=== PATIENT | male | born 1945 | race Caucasian/White ===

== ENCOUNTER 2018-04-19 21:39 | Emergency (ER) | payer MEDICARE, BC ==
--- NOTE | 2018-04-19 21:48 | EDM.PDOC ---
ED HPI GENERAL MEDICAL PROBLEM - General Chief Complaint: Diabetic Complaint Stated Complaint: SHAKEY WEAK VISION BLURRED Time Seen by Provider: 04/19/18 21:48 Source of Information: Reports: Patient, Family (spouse) History Limitations: Reports: No Limitations - History of Present Illness INITIAL COMMENTS - FREE TEXT/NARRATIVE: Patient is a known insulin-dependent diabetic for greater than 30 years. Nothing different about his activity levels today in fact he was more active on the hot sun yesterday. Usually takes 40 units of long-acting insulin at suppertime but the cut it back to 30 units as his blood sugar was in the upper 82. He ate spaghetti for supper and piece of chocolate cake with icing. However within the next few hours his blood sugar continued to drop. The initial blood sugar that he started to feel was low was reportedly 68 at home. He ate some chocolate and gotten up to 82. However he still feels ill and blood sugar in the ED was 68. He did take his by dysuria and today which he takes once weekly. He states his blood sugars have been under pretty good control with his last hemoglobin A1c of 7.6. Has been experiencing a few more lows as of late but his blood sugars were out of control with glycosylated protein 7 the tendons within the last 16 months. He presents with blurred vision diaphoresis weakness. Onset: Today Onset Date: 04/19/18 Onset Time: 19:30 Duration: Hour(s): Location: Reports: Generalized (Generalized) Quality: Reports: Other Severity: Moderate (Weakness) Improves with: Reports: Other (Eating chocolate seem to help for short period of time) Worsens with: Reports: Movement Context: Reports: Other (Insulin reaction with low blood sugar). Denies: Activity, Exercise, Lifting, Sick Contact, Trauma Associated Symptoms: Reports: Confusion, Diaphoresis, Nausea/Vomiting (Mild nausea), Other (Blurred vision) Treatments RELIEF MATE: Reports: Other (see below) (He had eaten some chocolate before coming to the ED.) - Related Data Allergies Allergy/AdvReac Type Severity Reaction Status Date / Time No Known Allergies Allergy Verified 09/13/16 13:04 Home Meds: Home Meds Aspirin [Halfprin] 81 mg PO DAILY 09/13/16 [History] Ergocalciferol (Vitamin D2) [Vitamin D] 0 mg PO DAILY 09/13/16 [History] Furosemide [Lasix] 20 mg PO DAILY 09/13/16 [History] Insulin Glargine,Hum.Rec.Anlog [Lantus Solostar] 50 unit INJECT BEDTIME [History] Insulin Glulisine [Apidra Solostar] 0 unit INJECT ASDIRECTED 09/13/16 [History] Metoprolol Succinate 50 mg PO DAILY 09/13/16 [History] Rosuvastatin [Crestor] 10 mg PO DAILY 09/13/16 [History] Spironolactone [Aldactone] 25 mg PO DAILY 09/13/16 [History] Past Medical History Cardiovascular History: Reports: High Cholesterol, Hypertension, Other (See Below) Other Cardiovascular History: AAA repair Respiratory History: Reports: Pneumonia, Recurrent, Other (See Below) Other Respiratory History: Life Support for 2-3 days;Oct 2015. ([facility] [place]) Genitourinary History: Reports: Other (See Below) Other Genitourinary History: septic-had urinary infection and lead to severe illness and intubation Musculoskeletal History: Reports: Other (See Below) Other Musculoskeletal History: laminectomy 5 vertebrae Psychiatric History: Reports: Anxiety Endocrine/Metabolic History: Reports: Diabetes, Type II (Controlled with insulin and Bydureon and once weekly.) - Past Surgical History HEENT Surgical History: Reports: Oral Surgery Male Surgical History: Reports: TURP-Transurethral Resection of Prostate Social & Family History - Caffeine Use Caffeine Use: Reports: Coffee, Soda - Living Situation & Occupation Living situation: Reports: Occupation: Retired [employer] - Review of Systems Review Of Systems: See Below Constitutional: Reports: Malaise, Weakness, Fatigue, Diaphoresis. Denies: Fever , Chills HEENT: Reports: Vision Change (Blurred vision due to hypoglycemia) Respiratory: Reports: Shortness of Breath Cardiovascular: Reports: Blood Pressure Problem, Dyspnea on Exertion ( Chronically), Lightheadedness. Denies: Chest Pain, Claudication, Edema, Orthopnea (Has chronic hypertension well controlled with medication) Endocrine: Reports: Fatigue GI/Abdominal: Denies: Abdominal Pain, Anorexia, Black Stool, Bloody Stool : Reports: Frequency, Other Musculoskeletal: Reports: Back Pain (Nocturia 3. Has known benign prostatic hypertrophy.), Joint Pain (Knees hips neck at times) Skin: Reports: No Symptoms Neurological: Reports: Confusion (Tonight he was a little confused and little dizzy and lightheaded. This associated with hypoglycemia) Psychiatric: Reports: No Symptoms Hematologic/Lymphatic: Reports: No Symptoms Immunologic: Reports: No Symptoms ED EXAM, GENERAL - Physical Exam Exam: See Below Exam Limited By: No Limitations General Appearance: Alert, Moderate Distress (Anxious. Alert and oriented to time I examine answers all questions appropriately.) Eye Exam: Bilateral Eye: Normal Inspection, PERRL Throat/Mouth: Normal Inspection, Normal Lips, Normal Oropharynx Respiratory/Chest: No Respiratory Distress, Lungs Clear, Normal Breath Sounds, Chest Non-Tender, Decreased Breath Sounds (Breath sounds are mildly diminished in both lung bases.). No: Respiratory Distress, Rhonchi, Wheezing Cardiovascular: Regular Rate, Rhythm, No Edema, No Gallop, No Murmur, No Rub. No: Normal Peripheral Pulses Peripheral Pulses: 1+: Posterior Tibial (L), Posterior Tibial (R), Dorsalis Pedis (L), Dorsalis Pedis (R) GI/Abdominal: Normal Bowel Sounds, Soft, Non-Tender, Other (Obese.) Extremities: Normal Inspection, Normal Range of Motion, Non-Tender, No Pedal Edema Neurological: Alert, Oriented, CN II-XII Intact, Normal Cognition, No Motor/ Sensory Deficits. No: Normal Gait Psychiatric: Normal Affect, Anxious Skin Exam: Warm, Diaphoretic EKG INTERPRETATION EKG Date: 04/19/18 Time: 22:20 Rhythm: NSR Rate (Beats/Min): 67 [place]: LAD-Left [place] Deviation ([id number]) P-Wave: Present (First-degree AV block) QRS: Other (Q waves V3 to V6 indicating an old large anteroseptal myocardial infarction.) ST-T: Other (Nonspecific T-wave changes flattening in aVF.) QT: Prolonged EKG Interpretation Comments: Abnormal ECG Course - Vital Signs Last Recorded V/S: Last Vital Signs Temp 36.5 C 04/19/18 23:24 Pulse 80 04/19/18 23:24 Resp 15 04/19/18 23:24 BP 117/70 04/19/18 23:24 Pulse Ox 93 L 04/19/18 23:24 Orthostatic Blood Pressure [ 117/82 Supine] Orthostatic Blood Pressure [ 123/74 Sitting] - Orders/Labs/Meds Orders: Active Orders 24 hr Category Date Time Status Blood Glucose Check, Bedside [RC] ONETIME Care 04/19/18 21:47 Active EKG Documentation Completion [RC] STAT Care 04/19/18 21:47 Active Orthostatic Vital Signs [RC] ASDIRECTED Care 04/19/18 21:47 Active Peripheral IV Care [RC] . DIRECTED Care 04/19/18 21:57 Active Peripheral IV Insertion Adult [OM.PC] Stat Oth 04/19/18 21:57 Ordered Labs: Laboratory Tests 04/19/18 04/19/18 04/19/18 Range/Units 21:49 22:00 22:00 WBC 13.45 H (4.23-9.07) K/mm3 RBC 4.81 (4.63-6.08) M/mm3 Hgb 13.7 (13.7-17.5) gm/L Hct 41.8 (40.1-51.0) % MCV 86.9 (79.0-92.2) fl MCH 28.5 (25.7-32.2) pg MCHC 32.8 (32.2-35.5) g/dl RDW Std Deviation 44.2 H (35.1-43.9) fL Plt Count 188 (163-337) K/mm3 MPV 10.8 (9.4-12.3) fl Neutrophils % (Manual) 79 H (40-60) % Band Neutrophils % 0 (0-10) % Lymphocytes % (Manual) 7 L (20-40) % Atypical Lymphs % 0 % Monocytes % (Manual) 11 H (2-10) % Eosinophils % (Manual) 1 (0.8-7.0) % Basophils % (Manual) 1 (0.2-1.2) Myelocytes % 1 Platelet Estimate Adequate Plt Morphology Comment Normal RBC Morph Comment Normal Sodium 137 (136-145) mEq/L Potassium 3.8 (3.5-5.1) mEq/L Chloride 100 (98-107) mEq/L Carbon Dioxide 26 (21-32) mEq/L Anion Gap 14.8 (5-15) BUN 22 H (7-18) mg/dL Creatinine 1.9 H (0.7-1.3) mg/dL Est Cr Clr Drug Dosing 34.63 mL/min Estimated GFR (MDRD) 35 (>60) mL/min BUN/Creatinine Ratio 11.6 L (14-18) Glucose 74 L (83-115) mg/dL POC Glucose 64 L (83-110) mg/dL Calcium 9.8 (8.5-10.1) mg/dL Magnesium 3.0 H (1.8-2.4) mg/dl Total Bilirubin 0.7 (0.2-1.0) mg/dL AST 18 (15-37) U/L ALT 22 (16-63) U/L Alkaline Phosphatase 67 (46-116) U/L Troponin I < 0.017 (0.00-0.056) ng/mL Total Protein 7.1 (6.4-8.2) g/dl Albumin 3.5 (3.4-5.0) g/dl Globulin 3.6 gm/dL Albumin/Globulin Ratio 1.0 (1-2) Meds: Medications Discontinued Medications Generic Name Dose Route Start Last Admin Trade Name Freq PRN Reason Stop Dose Admin Dextrose/Water 25 ml 04/19/18 21:56 04/19/18 22:00 Dextrose 50% In Water IVPUSH 04/19/18 21:57 25 ml ONETIME ONE Administration Sodium Chloride 10 ml 04/19/18 21:57 04/19/18 22:01 Saline Flush FLUSH 10 ml ASDIRECTED PRN Administration Keep Vein Open - Radiology Interpretation Free Text/Narrative:: 72-year-old male presents to the ED with an insulin reaction. Blood sugars at home were in the 60s. In chocolate got up to as high as 82. Patient's blood sugar was around 82 at supper time and he cut back his regular dosage of insulin from 40-30 units subcutaneous. He has been and chocolate cake with icing etc. However within the hour and a half his blood sugars start to drop in went as low as 68 at home. He ate further chocolate brought up into the mid 80s but again continued to drop and he continued to feel unwell with diaphoresis blurred vision and weakness. He therefore came to the ED with his . Blood sugar here was 64. He is drinking apple juice at this time. Plan IV access and he will be given one half amp of D50 percent. Blood sugar to be checked in an hour. - Re-Assessments/Exams Free Text/Narrative Re-Assessment/Exam: 04/19/18 22:59 Labs are back showing an elevated white count at 13.45 with 79% neutrophils no bands reported. Hemoglobin was 13.7 with hematocrit of 41.8. Platelet count is 188,000. Sodium 137 with potassium of 3.8. Cord 100 with a bicarbonate of 26. And a gap is normal at 14.8. BUNs 22 with a creatinine of 1.9. EGFR is 35 i.e. stage III chronic kidney disease. Glucose in the lab was 74. Bedside was 64. Calcium is 9.8 with magnesium slightly elevated at 3.0. Liver function normal troponin I is less than 0.017. 04/19/18 23:22 he feels back to himself. Last blood sugar is 157. He will therefore be discharged to home may have a snack before bed to prevent further hyperglycemia. Suggest checking his blood sugars 2 hours from now and then once again as soon as he wakes up. Question whether his Bydureon and had any effect on causing hypoglycemic effect tonight. Departure - Departure Time of Disposition: 23:23 Disposition: Home, Self-Care 01 Condition: Fair Clinical Impression: Insulin adverse reaction Qualifiers: Encounter type: initial encounter Qualified Code(s): T38.3X5A - Adverse effect of insulin and oral hypoglycemic [antidiabetic] drugs, initial encounter - Discharge Information Referrals: Mason Lerma MD [Primary Care Provider] - Forms: ED Department Discharge Additional Instructions: Evaluation the emergency room tonight in regards to insulin reaction with severe hypoglycemia. Blood sugar dropped into the 60s and probably even lower by the sounds of your symptoms at home. Vision became so blurred he couldn't tell which finger to provoke etc. Intubation. Blood sugar here was 68 and therefore you were given half an amp of D5 50 dextrose to bring your blood sugar back up. An hour later blood sugar is 157. I would suggest a nighttime snack when you get home and check her blood sugar 2 hours after you had your snack if this one is okay then it would be okay to check it in the morning when he first awaken. Return to the hospital if any further problems occur. - My Orders Last 24 Hours: My Active Orders 04/19/18 21:47 Blood Glucose Check, Bedside [RC] ONETIME EKG Documentation Completion [RC] STAT Orthostatic Vital Signs [RC] ASDIRECTED 04/19/18 21:57 Peripheral IV Care [RC] . DIRECTED Peripheral IV Insertion Adult [OM.PC] Stat - Assessment/Plan Last 24 Hours: My Active Orders 04/19/18 21:47 Blood Glucose Check, Bedside [RC] ONETIME EKG Documentation Completion [RC] STAT Orthostatic Vital Signs [RC] ASDIRECTED 04/19/18 21:57 Peripheral IV Care [RC] . DIRECTED Peripheral IV Insertion Adult [OM.PC] Stat
[2018-04-19] MEDS ORDERED: 50% Dextrose in Water 50 ML Syringe IVPUSH ONE (21:56)
[2018-04-19] MEDS ORDERED: Sodium Chloride 0.9% 10 ML Syringe FLUSH PRN (21:57)
[2018-04-19 23:24] VITALS: BP 117/70
== END 2018-04-19 23:30 | disposition home or self-care (01) ==
LOC: JD.ED 21:39
DX: R41.82 Altered mental status, unspecified (principal); T38.3X5A Adverse effect of insulin and oral hypoglycemic [antidiabetic] drugs, initial encounter; E78.00 Pure hypercholesterolemia, unspecified; I10 Essential (primary) hypertension; F41.9 Anxiety disorder, unspecified; E11.9 Type 2 diabetes mellitus without complications; Z79.4 Long term (current) use of insulin; Z79.899 Other long term (current) drug therapy; Z87.01 Personal history of pneumonia (recurrent)
CPT/HCPCS: 36415; 80053; 82962; 83735; 84484; 85007; 85027; 93005; 96374; 99284; J7050; J7060; 93010